=== PATIENT | female | born 2000 | race Caucasian/White ===

== ENCOUNTER 2022-09-11 12:23 | Inpatient (IN) | payer OTHER ==
[~2022-09-11] VITALS: Ht 160 cm; Wt 82.6 kg
[2022-09-11] VITALS (24 sets, daily range): BP systolic 103–189; BP diastolic 52–106
[2022-09-11] MEDS ORDERED: OXYTOCIN DRIP 30 UNITS in IV 1 EA IV PRN ×6 (13:10)
[2022-09-11] MEDS ORDERED: METHYLERGONOVINE MALEATE 0.2MG/ML 1ML VIAL IM PRN (13:10)
[2022-09-11] MEDS ORDERED: OXYTOCIN INJ 10UNITS/ML 1ML VIAL IM PRN (13:10)
[2022-09-11] MEDS ORDERED: CARBOPROST TROMETHAMINE 250 MCG/ML AMP IM PRN (13:10)
[2022-09-11] MEDS ORDERED: LACTATED RINGER'S 1000 ML IV PRN (13:10)
[2022-09-11] MEDS ORDERED: TRANEXAMIC ACID INJection 1,000 MG in NS 100 ML IV PRN (13:10)
[2022-09-11] MEDS ORDERED: LIDOCAINE 1% MDV 20ML VIAL INFIL PRN (13:10)
[2022-09-11 13:54] LABS: HEMOGLOBIN 13.3 g/dl (12.0-15.5); MEAN CORPUSCULAR HGB CONC 34.1 g/dl (32.0-36.5); MEAN CORPUSCULAR VOLUME 85.2 fl (80.0-96.0); PLATELET COUNT, AUTOMATED 224 10^3/uL (150-450); RED BLOOD COUNT 4.58 10^6/uL (4.00-5.40); WHITE BLOOD COUNT 13.3 10^3/uL (4.0-10.0)
[2022-09-11] MEDS ORDERED: OXYTOCIN DRIP 30 UNITS in IV 1 EA IV SCH (14:00)
[2022-09-11] MEDS ORDERED: VALT500T PO (14:03)
[2022-09-11] MEDS ORDERED: TUMS500C PO (14:03)
[2022-09-11] MEDS ORDERED: ACET-907 PO (14:03)
[2022-09-11] MEDS ORDERED: PRENTAB9 PO (14:03)
[2022-09-11] MEDS ORDERED: HOME MED LIST COMPLETE! XX SCH (14:05)
[2022-09-11] MEDS: LR 1,000 ML IV SCH ×2 (14:15→17:20)
[2022-09-11] MEDS: valACYclovir HCL 500 MG TAB PO SCH (16:20)
[2022-09-11] MEDS ORDERED: RIBO400T PO (17:26)
[2022-09-11] MEDS ORDERED: ESSE250T PO (17:26)
[2022-09-11] MEDS ORDERED: FENTANYL 2MCG/ML ROPIVACAINE 0.2% IN 0.9% NACL 100ML IVBAG As Ordered ONE (17:30)
[2022-09-11] MEDS ORDERED: LR 500 ML IV PRN (17:45)
[2022-09-11] MEDS ORDERED: EPIDURAL/PCA KEYS XX PRN (17:45)
[2022-09-11] MEDS ORDERED: ePHEDrine SULFATE 25 MG/5 ML(5MG/ML) SYRINGE IVP PRN (17:45)
[2022-09-11] MEDS ORDERED: ONDANSETRON 4MG 2ML VIAL IV PRN (17:45)
[2022-09-11] MEDS ORDERED: diphenhydrAMINE 50MG/ML VIAL IV PRN (17:45)
[2022-09-11] MEDS ORDERED: NALOXONE INJ 0.4MG/1ML VIAL IV PRN (17:45)
[2022-09-11] MEDS: FENTANYL/ROPIVACAINE/NACL BAG 100 ML EPIDURAL SCH (18:49)
[2022-09-12] VITALS (10 sets, daily range): BP systolic 103–144; BP diastolic 54–69
[2022-09-12] MEDS: valACYclovir HCL 500 MG TAB PO SCH (01:52)
[2022-09-12] MEDS: FENTANYL/ROPIVACAINE/NACL BAG 100 ML EPIDURAL SCH (03:43)
[2022-09-12] MEDS ORDERED: ACETAMINOPHEN 500 MG TAB PO ONE (05:25)
[2022-09-12] MEDS ORDERED: diphenhydrAMINE 50MG/ML VIAL IV ONE ×2 (05:25→08:10)
[2022-09-12] MEDS ORDERED: AMPICILLIN SOD 2 GM in D5W MINI-BAG PLUS 100 ML IV SCH (06:30)
[2022-09-12] MEDS ORDERED: GENTAMICIN 400 MG in D5W 100 ML IV ONE (06:45)
[2022-09-12 07:36] LABS: CORD GAS ABE V -5.1; CORD GAS HCO3 V 19.7 MEQ/L; CORD GAS O2 SAT V 97.4 %; CORD GAS PCO2 V 36.2 mmHg; CORD GAS PH V 7.353 UNITS; CORD GAS PO2 V 69.6 mmHg; CORD GAS SBC V 20.3 MEQ/L; CORD GAS TCO2 V 20.8 MEQ/L
[2022-09-12 07:37] LABS: CORD GAS ABE A -2.3; CORD GAS HCO3 A 24.6 MEQ/L; CORD GAS O2 SAT A 38.4 %; CORD GAS PCO2 A 49.8 mmHg; CORD GAS PH A 7.311 UNITS; CORD GAS PO2 A 18.6 mmHg; CORD GAS SBC A 21.1 MEQ/L; CORD GAS TCO2 A 26.1 MEQ/L
[2022-09-12] MEDS ORDERED: METHYLERGONOVINE MALEATE 0.2 MG TAB PO PRN (07:40)
[2022-09-12] MEDS ORDERED: DIBUCAINE 1% OINTMENT 30GM TOP PRN (07:40)
[2022-09-12] MEDS ORDERED: MOM 30ML SUSPENSION UDC PO PRN (07:40)
[2022-09-12] MEDS ORDERED: ONDANSETRON 4MG 2ML VIAL IV PRN (07:40)
[2022-09-12] MEDS ORDERED: DOCUSATE SODIUM 100MG CAPSULE PO PRN (07:40)
[2022-09-12] MEDS ORDERED: ACETAMINOPHEN 500 MG TAB PO PRN (07:40)
[2022-09-12] MEDS ORDERED: RHOGAM 300MCG (1500IU) INJ IM SCH (07:40)
[2022-09-12] MEDS ORDERED: OXYTOCIN DRIP 30 UNITS in IV 1 EA IV SCH ×2 (08:00→08:30)
[2022-09-12] MEDS ORDERED: KETOROLAC 30 MG/ML 1ML VIAL IV ONE (08:00)
[2022-09-12] MEDS ORDERED: PERCOCET 5MG/325MG TAB PO ONE (11:05)
[2022-09-12] MEDS: PRENATAL VITAMINS CHEWABLE TABLET PO SCH (11:08)
[2022-09-12] MEDS ORDERED: IBUPROFEN 600MG TAB PO PRN (12:00)
[2022-09-12] MEDS: IBUPROFEN 800 MG TAB PO PRN (15:00)
[2022-09-12] MEDS: ACETAMINOPHEN TAB 650MG DOSE (2X325MG) PO PRN (23:05)
[2022-09-13 02:10] VITALS: BP 113/60
[2022-09-13] MEDS: ACETAMINOPHEN TAB 650MG DOSE (2X325MG) PO PRN ×4 (04:05→22:16)
[2022-09-13 06:00] VITALS: BP 111/60
[2022-09-13 07:38] LABS: MEAN CORPUSCULAR HEMOGLOBIN 30.5 pg (27.0-33.0); MEAN CORPUSCULAR HGB CONC 34.8 g/dl (32.0-36.5); MEAN CORPUSCULAR VOLUME 87.6 fl (80.0-96.0); PLATELET COUNT, AUTOMATED 178 10^3/uL (150-450); RED BLOOD COUNT 3.31 10^6/uL (4.00-5.40); WHITE BLOOD COUNT 17.3 10^3/uL (4.0-10.0)
[2022-09-13 07:40] LABS: HEMOGLOBIN 10.1 g/dl (12.0-15.5)
[2022-09-13] MEDS: PRENATAL VITAMINS CHEWABLE TABLET PO SCH (08:17)
[2022-09-13] MEDS: IBUPROFEN 800 MG TAB PO PRN ×2 (08:18→21:25)
[2022-09-13 10:00] VITALS: BP 102/59
[2022-09-13 14:00] VITALS: BP 116/69
[2022-09-13 18:13] VITALS: BP 119/69
[2022-09-13 22:00] VITALS: BP 106/56
[2022-09-14 02:00] VITALS: BP 118/63
[2022-09-14 06:00] VITALS: BP 115/65
[2022-09-14] MEDS ORDERED: MEASLES,MUMPS,RUBELLA VACCINE INJ (MMR-II) SC.IMMUN ONE (09:00)
[2022-09-14] MEDS: PRENATAL VITAMINS CHEWABLE TABLET PO SCH (11:42)
== END 2022-09-14 13:27 | disposition home or self-care (01) | DRG 805 ==
LOC: M LDI 12:48 → M OBS 09-12 12:45 → UNDODISIN 09-14 13:27
PROVIDERS: ADMIT Obstetrics & Gynecology; ATTEND Obstetrics & Gynecology
PROC: 10907ZC Drainage of Amniotic Fluid, Therapeutic from Products of Conception, Via Natural or Artificial Opening (ICD-10-PCS; 2022-09-11)
PROC: 3E0P7GC Introduction of Other Therapeutic Substance into Female Reproductive, Via Natural or Artificial Opening (ICD-10-PCS; 2022-09-11)
PROC: 10E0XZZ Delivery of Products of Conception, External Approach (ICD-10-PCS; principal; 2022-09-12)
PROC: 0HQ9XZZ Repair Perineum Skin, External Approach (ICD-10-PCS; 2022-09-12)
DX: O48.0 Post-term pregnancy (principal); Z37.0 Single live birth; O41.1230 Chorioamnionitis, third trimester, not applicable or unspecified; Z3A.41 41 weeks gestation of pregnancy; O62.2 Other uterine inertia; O77.0 Labor and delivery complicated by meconium in amniotic fluid; O70.0 First degree perineal laceration during delivery

== ENCOUNTER 2024-01-11 09:51 | Emergency (ER) | payer OTHER ==
[~2024-01-11] VITALS: Ht 162.6 cm; Wt 71.7 kg
[~2024-01-11 09:51] MED LIST: ACET-907 PO; ESSE250T PO; PRENTAB9 PO; RIBO400T PO; TUMS500C PO; VALT500T PO
[2024-01-11 13:13] LABS: BASO % 0.4 % (0.0-1.0); EOS # 0.4 10^3/uL (0.0-0.5); EOS % 4.1 % (0.0-3.0); HEMATOCRIT 42.2 % (36.0-47.0); HEMOGLOBIN 14.6 g/dl (12.0-15.5); LYMPH # 2.3 10^3/uL (1.5-5.0); LYMPH % 25.2 % (24.0-44.0); MEAN CORPUSCULAR HEMOGLOBIN 30.2 pg (27.0-33.0); MEAN CORPUSCULAR HGB CONC 34.6 g/dl (32.0-36.5); MEAN CORPUSCULAR VOLUME 87.4 fl (80.0-96.0); MONO # 0.5 10^3/uL (0.0-0.8); MONO % 5.1 % (2.0-8.0); NEUTROPHILS % 64.9 % (36.0-66.0); PLATELET COUNT, AUTOMATED 255 10^3/uL (150-450); RED BLOOD COUNT 4.83 10^6/uL (4.00-5.40); WHITE BLOOD COUNT 9.3 10^3/uL (4.0-10.0)
[2024-01-11 13:36] LABS: BLOOD UREA NITROGEN 10 MG/DL (9-23); CALCIUM LEVEL 9.1 MG/DL (8.5-10.1); CARBON DIOXIDE LEVEL 24 MMOL/L (20-31); CHLORIDE LEVEL 107 MMOL/L (98-107); CREATININE FOR GFR 0.53 MG/DL (0.55-1.30); GLOMERULAR FILTRATION RATE > 60.0 (>60); GLUCOSE, FASTING 73 MG/DL (60-100); POTASSIUM SERUM 4.7 MMOL/L (3.5-5.1); SODIUM LEVEL 137 MMOL/L (136-145)
[2024-01-11 14:17] VITALS: BP 121/71; TEMP 99.1; O2SAT 100
[2024-01-11 15:18] LABS: MAGNESIUM LEVEL 1.8 MG/DL (1.8-2.4)
[2024-01-11 15:22] LABS: FREE T4 1.19 NG/DL (0.89-1.76); THYROID STIMULATING HORMONE 1.447 uIU/ML (0.55-4.78)
== END 2024-01-11 15:06 | disposition home or self-care (01) ==
LOC: M ED 09:51
DX: R00.2 Palpitations (principal); Z3A.13 13 weeks gestation of pregnancy; Z88.8 Allergy status to other drugs, medicaments and biological substances

== ENCOUNTER 2024-04-13 09:34 | Outpatient (CLI) | payer OTHER ==
[~2024-04-13] VITALS: Ht 162.6 cm; Wt 78.1 kg
[2024-04-13 09:48] VITALS: BP 113/71
[2024-04-13] MEDS ORDERED: TUMS750C5 PO (09:56)
[2024-04-13] MEDS ORDERED: BENA25CA4 PO (09:56)
[2024-04-13] MEDS ORDERED: HOME MED LIST COMPLETE! XX SCH (10:00)
== END 2024-04-13 11:49 | disposition home or self-care (01) ==
LOC: M LDO 09:34
PROVIDERS: ATTEND Advanced Practice Midwife
DX: O36.8120 Decreased fetal movements, second trimester, not applicable or unspecified (principal); O98.512 Other viral diseases complicating pregnancy, second trimester; B00.9 Herpesviral infection, unspecified; Z86.16 Personal history of COVID-19; Z3A.26 26 weeks gestation of pregnancy
CPT/HCPCS: 59025; G0463

== ENCOUNTER → 2024-06-21 | Outpatient (REF) | payer OTHER ==
[~2024-06-21] MED LIST changes: +BENA25CA4 PO; +TUMS750C5 PO
== END ==
LOC: M PLALAB 13:02
PROVIDERS: ATTEND Nurse Practitioner Family
DX: Z36.85 Encounter for antenatal screening for Streptococcus B (principal); Z3A.36 36 weeks gestation of pregnancy

== ENCOUNTER 2024-07-13 12:23 | Inpatient (IN) | payer OTHER ==
[2024-07-13] VITALS (27 sets, daily range): BP systolic 92–146; BP diastolic 50–95
[~2024-07-13] VITALS: Ht 162.6 cm; Wt 85.9 kg
[2024-07-13] MEDS ORDERED: VALT500T PO (12:49)
[2024-07-13] MEDS ORDERED: HOME MED LIST COMPLETE! XX SCH (12:50)
[2024-07-13] MEDS ORDERED: miSOPROStol 50MCG 1/2 TABLET PO PRN (13:35)
[2024-07-13] MEDS ORDERED: TRANEXAMIC ACID INJection 1,000 MG in NS 100 ML IV PRN (13:35)
[2024-07-13] MEDS ORDERED: OXYTOCIN INJ 10UNITS/ML 1ML VIAL IM PRN (13:35)
[2024-07-13] MEDS ORDERED: LR 1,000 ML IV SCH (13:35)
[2024-07-13] MEDS ORDERED: METHYLERGONOVINE MALEATE 0.2MG/ML 1ML VIAL IM PRN (13:35)
[2024-07-13] MEDS ORDERED: LIDOCAINE 1% MDV 20ML VIAL INFIL PRN (13:35)
[2024-07-13] MEDS ORDERED: CARBOPROST TROMETHAMINE 250 MCG/ML AMP IM PRN (13:35)
[2024-07-13] MEDS ORDERED: OXYTOCIN INJ 10UNITS/ML 1ML VIAL IV PRN (13:35)
[2024-07-13] MEDS ORDERED: OXYTOCIN DRIP 30 UNITS in IV 1 EA IV PRN (13:35)
[2024-07-13 14:00] LABS: HEMATOCRIT 43.6 % (36.0-47.0); HEMOGLOBIN 14.7 g/dl (12.0-15.5); MEAN CORPUSCULAR HEMOGLOBIN 29.1 pg (27.0-33.0); MEAN CORPUSCULAR HGB CONC 33.7 g/dl (32.0-36.5); MEAN CORPUSCULAR VOLUME 86.3 fl (80.0-96.0); PLATELET COUNT, AUTOMATED 251 10^3/uL (150-450); RED BLOOD COUNT 5.05 10^6/uL (4.00-5.40); WHITE BLOOD COUNT 10.4 10^3/uL (4.0-10.0)
[2024-07-13] MEDS: OXYTOCIN DRIP 30 UNITS in IV 1 EA IV SCH (14:30)
[2024-07-13] MEDS: LR 1,000 ML IV SCH (14:30)
[2024-07-13 14:50] LABS: HIV 1&2 SCREEN NEGATIVE (NEGATIVE)
[2024-07-13 14:57] LABS: HEPATITIS C VIRUS ABY INDEX 0.19 INDEX (<0.8)
[2024-07-13] MEDS: valACYclovir HCL 500 MG TAB PO SCH (21:00)
[2024-07-13] MEDS: LACTATED RINGER'S 1000 ML IV STA (21:41)
[2024-07-13] MEDS ORDERED: NALOXONE INJ 0.4MG/1ML VIAL IV PRN (22:25)
[2024-07-13] MEDS ORDERED: LR 500 ML IV PRN (22:25)
[2024-07-13] MEDS ORDERED: EPIDURAL/PCA KEYS XX PRN (22:25)
[2024-07-13] MEDS ORDERED: ONDANSETRON 4MG 2ML VIAL IV PRN (22:25)
[2024-07-13] MEDS ORDERED: ePHEDrine SULFATE 25 MG/5 ML(5MG/ML) SYRINGE IVP PRN (22:25)
[2024-07-13] MEDS ORDERED: diphenhydrAMINE 50MG/ML VIAL IV PRN (22:25)
[2024-07-13] MEDS: FENTANYL/ROPIVACAINE/NACL BAG 100 ML EPIDURAL SCH (23:05)
[2024-07-13] MEDS: OXYTOCIN DRIP 30 UNITS in IV 1 EA IV PRN (23:43)
[2024-07-13] MEDS ORDERED: ACETAMINOPHEN 325 MG TAB PO PRN (23:55)
[2024-07-13] MEDS ORDERED: DIBUCAINE 1% OINTMENT 30GM TOP PRN (23:55)
[2024-07-13] MEDS ORDERED: METHYLERGONOVINE MALEATE 0.2 MG TAB PO PRN (23:55)
[2024-07-13] MEDS ORDERED: RHOGAM 300MCG (1500IU) INJ IM SCH (23:55)
[2024-07-13] MEDS ORDERED: ACETAMINOPHEN 500 MG TAB PO PRN (23:55)
[2024-07-14] VITALS (7 sets, daily range): BP systolic 106–129; BP diastolic 55–81; O2SAT 98–100
[2024-07-14 00:07] LABS: CORD GAS ABE A -7.3; CORD GAS HCO3 A 15.8 MMOL/L; CORD GAS O2 SAT A 99.7 %; CORD GAS PCO2 A 27.2 mmHg; CORD GAS PH A 7.383 UNITS; CORD GAS SBC A 18.7 MMOL/L; CORD GAS TCO2 A 16.7 MMOL/L
[2024-07-14 00:08] LABS: CORD GAS ABE V -3.9; CORD GAS HCO3 V 20.9 MMOL/L; CORD GAS O2 SAT V 93.8 %; CORD GAS PCO2 V 37.3 mmHg; CORD GAS PH V 7.366 UNITS; CORD GAS PO2 V 56.4 mmHg; CORD GAS SBC V 21.2 MMOL/L
[2024-07-14] MEDS: PRENATAL VITAMINS CHEWABLE TABLET PO SCH (07:27)
[2024-07-14] MEDS: IBUPROFEN 800 MG TAB PO PRN (07:28)
[2024-07-14] MEDS: DOCUSATE SODIUM 100MG CAPSULE PO PRN (08:55)
[2024-07-14] MEDS ORDERED: PRENATAL VITAMINS CHEWABLE TABLET PO SCH (09:00)
[2024-07-15 06:00] VITALS: BP 132/83; O2SAT 97
[2024-07-15] MEDS: MEASLES,MUMPS,RUBELLA VACCINE INJ (MMR-II) SC.IMMUN ONE (09:00)
== END 2024-07-15 13:45 | disposition home or self-care (01) | DRG 807 ==
LOC: M LDI 12:23 → M OBS 07-14 02:10 → UNDODISIN 07-15 13:57
PROVIDERS: ADMIT Obstetrics & Gynecology; ATTEND Obstetrics & Gynecology
PROC: 10E0XZZ Delivery of Products of Conception, External Approach (ICD-10-PCS; principal; 2024-07-13)
PROC: 3E033VJ Introduction of Other Hormone into Peripheral Vein, Percutaneous Approach (ICD-10-PCS; 2024-07-13)
DX: O98.512 Other viral diseases complicating pregnancy, second trimester (principal); Z37.0 Single live birth; Z3A.39 39 weeks gestation of pregnancy; Z88.1 Allergy status to other antibiotic agents; Z79.899 Other long term (current) drug therapy

== ENCOUNTER → 2024-09-18 | Outpatient (REF) | payer OTHER | LOC: M LAB REF 12:12 | PROVIDERS: ATTEND Nurse Practitioner Family | DX: J06.9 Acute upper respiratory infection, unspecified (principal); Z20.828 Contact with and (suspected) exposure to other viral communicable diseases ==